=== PATIENT | male | born 1960 | race Caucasian/White ===

== ENCOUNTER 2025-07-11 05:51 | Emergency (ER) | payer OTHER ==
--- OUTSIDE RECORDS SUMMARY | 2025-07-11 05:55 | XMS REPORT | Continuity of Care Document ---
Author Name Unknown Address [address] [facility] [address] [place] [address] [facility] Address [address] 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 Role Phone Jem Ramires Attending Clinician Unavailable Mandy Dai Attending Clinician Unavailable DANNY GUARDADO Attending Clinician Unavailable DOMI GRANGER Attending Clinician Unavailab le LAB90 Attending Clinician Unavailable Payers Payer Name Policy Type Policy Number Effective Date Expirati on Date Source [facility] [id number] 7 [id number] 2025 00:00:00 [facility] FFS 5 [id number] 2025 00:00:00 [employer]-O[employer]IND 4 [id number] 2012 00:00:00 AETNA 53 [id number] 2023 00:00:00 [facility] Problems Condition Name Condition Details Condition Category Status Onset Date Resolution Date Last Treatment Date Treating Clinician Comments Source Epigastric pain Epigastric pain Disease Active 07-04 00:00: 00 Rajiv Seybold - Externa l Fatty liver Fatty liver Disease Active 07-04 00:00: 00 Rajiv Pires Externa l Seasonal allergic rhinitis due to pollen Seasonal allergic rhinitis due to pollen Disease Active 07-04 00:00: 00 Rajiv Pires Externa l 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) Disease Active 06-26 00:00: 00 Rajiv Pires Externa tamra Dyslipidem ia Dyslipidem ia Disease Active 2009-11 00:00: 00 Rajiv Pires Externa l DM type 2 with diabetic mixed hyperlipid emia (multi HCC) DM type 2 with diabetic mixed hyperlipid emia (multi HCC) Disease Active 2009-11 00:00: 00 Rajiv Pires Externa tamra Essential hypertensi on, benign Essential hypertensi on, benign Disease Active 2009-11 00:00: 00 Rajiv Fermina tamra [id number] Chronic gout without tophus, unspecifie d cause, unspecifie d site Problem [facility] [id number] Mixed hyperlipid emia Problem Common [facility] [id number] Essential hypertensi on Problem [facility] [id number] Type 2 diabetes mellitus with hyperglyce vernon, without long-term current use of insulin Problem [facility] [id number] Decreased hearing of both ears Problem [facility] [id number] Body mass index [BMI] 39.0-39.9, adult Problem [facility] Allergic rhinitis Non-season al allergic rhinitis, unspecifie d chronicity , unspecifie d trigger Problem [facility] Hypothyroi dism Hypothyroi dism Disease Active Rajiv Pires Externa tamra Gout Gout Disease Active Rajiv Pires Externa tamra Severe obesity Severe obesity Disease Active Rajiv Mcdermott - Externa l IDALIA on CPAP IDALIA on CPAP Disease Active Rajiv Mcdermott - Externa l Chest pain Chest pain Disease Resolve d 2009-11 00:00: 00 2025-07-04 00:00:00 2025-07-04 15:18:10 Rajiv Mcdermott - Externa l Allergies, Adverse Reactions, Alerts Allergy Name Allergy Type Status Severity Reaction(s) Onset Date Inactive Date Treating Clinician Comments Source Penicill in Conner Russ ty to adverse reaction s Active 2009-11 00:00: 00 Rajiv Fermina l [id number] Drug allergy Active Unknown [facility] Social History Social Habit Start Date Stop Date Quantity Comments Source Sex Assigned At [facility] Gender identity Ivy Mcdermott - External Sexual orientation Aleida Mcdermott - External Alcoholic beverage intake 2025-07-04 00:00:00 2025-07-04 00:00:00 Current drinker of alcohol (finding) Rajiv Mcdermott - External History of Social function 2025-07-04 00:00:00 2025-07-04 00:00:00 Rajiv Mcdermott - External Tobacco use and exposure 2025-06-26 00:00:00 2025-06-26 00:00:00 Former smokeless tobacco user Rajiv Mcdermott - External Tobacco Comment 2025-06-26 00:00:00 2025-06-26 00:00:00 ocass. cigar Rajiv Mcdermott - External Sex 2012-12-13 19:44:50 2012-12-13 19:44:50 Male (finding) Rajiv Mcdermott - External Alcohol Comment 2010-10-27 00:00:00 2010-10-27 00:00:00 1 drink of wine or beer daily Rajiv Mcdermott - External History of tobacco use 2009-03-12 00:00:00 Cigar Smoker Rajiv Mcdermott - External Smoking Status Start Date Stop Date Source Ex-smoker 2025-06-26 00:00:00 2025-06-26 00:00:00 Aleida Mcdermott - External Current Smoker 2025-04-09 00:00:00 [facility] Never Smoker [facility] Medications Ordered Medication Name Filled Medication Name Start Date Stop Date Current Medication? Ordering Clinician Indication Dosage Frequency Signature (SIG) Comments Components Source Tirzepatide (Mounjaro) 12.5 MG/0.5ML subcutaneou s Solution Auto-inject or Tirzepatide (Mounjaro) 12.5 MG/0.5ML subcutaneou s Solution Auto-inject or 07-04 00:00: 00 Yes [id number] 3 12.5mg Q1W Inject 12.5 mg into the skin once a week. Rajiv barboza Levothyroxi ne Sodium 75 MCG oral Tablet Levothyroxi ne Sodium 75 MCG oral Tablet 06-26 15:32: 46 Yes 75ug QD Take 1 tablet (75 mcg total) by mouth daily. Rajiv barboza Atorvastati n Calcium 10 MG oral Tablet Atorvastati n Calcium 10 MG oral Tablet 06-26 15:32: 46 Yes 10mg QD Take 1 tablet (10 mg total) by mouth daily. Rajiv barboza Montelukast (SINGULAIR) 10 MG oral Tablet tablet Montelukast (SINGULAIR) 10 MG oral Tablet tablet 06-26 15:32: 46 Yes 10mg QD Take 1 tablet (10 mg total) by mouth daily. Rajiv barboza Allopurinol 300 MG oral Tablet Allopurinol 300 MG oral Tablet 06-26 15:32: 46 Yes 300mg QD Take 1 tablet (300 mg total) by mouth daily. Rajiv barboza Tirzepatide (Mounjaro) 15 MG/0.5ML subcutaneou s Solution Auto-inject or Tirzepatide (Mounjaro) 15 MG/0.5ML subcutaneou s Solution Auto-inject or 06-26 15:32: 46 07-04 00:00 :00 No inject 15mg Subcutaneo us Once a week for 30 days Rajiv barboza Omeprazole 20 MG oral Delayed Release Capsule Omeprazole 20 MG oral Delayed Release Capsule 06-26 00:00: 00 07-04 00:00 :00 No [id number] 20mg QD Take 1 capsule (20 mg total) by mouth daily Take 30 minutes before breakfast. Rajiv barboza Amlodipine Besy-Benaze pril HCl (LOTREL) 10-20 MG OR CAPS Amlodipine Besy-Benaze pril HCl (LOTREL) 10-20 MG OR CAPS 1-03 00:00: 00 Yes [id number] 1{capsu le} QD Take 1 capsule by mouth daily Rajiv barboza PEG-KCl-NaC l-NaSulf-Na Asc-C (MOVIPREP) 100 GM OR SOLR PEG-KCl-NaC l-NaSulf-Na Asc-C (MOVIPREP) 100 GM OR SOLR 9- 00:00: 00 Yes [id number] USE DIRECTED Rajiv barboza Montelukast Sodium 10 MG Montelukast Sodium 10 MG No 1{table t} QD Montelukas t Sodium 10 MG Atorvastati n Calcium 10 MG Atorvastati n Calcium 10 MG No 1{table t} QD Atorvastat in Calcium 10 MG Allopurinol 300 MG Allopurinol 300 MG No 1{table t} QD Allopurino l 300 MG Immunizations Ordered Immunization Name Filled Immunization Name Date Status Comments Source Boostrix (Tdap) Boostrix (Tdap) Unknown Completed [facility] Boostrix (Tdap) Boostrix (Tdap) Unknown Completed [facility] Boostrix (Tdap) Boostrix (Tdap) Unknown Completed [facility] Boostrix (Tdap) Boostrix (Tdap) Unknown Completed [facility] Boostrix (Tdap) Boostrix (Tdap) Unknown Completed [facility] Boostrix (Tdap) Boostrix (Tdap) Unknown Completed [facility] Boostrix (Tdap) Boostrix (Tdap) Unknown Completed [facility] Boostrix (Tdap) Boostrix (Tdap) Unknown Completed [facility] Boostrix (Tdap) Boostrix (Tdap) Unknown Completed [facility] Boostrix (Tdap) Boostrix (Tdap) Unknown Completed [facility] Vital Signs Vital Name Observation Time Observation Value Comments S ourstef Systolic blood pressure 2025-07-04 14:51:00 110 mm[Hg] Rajiv Melendrez ld - External Diastolic blood pressure 2025-07-04 14:51:00 78 mm[Hg] Rajiv Crooko ld - External Heart rate 2025-07-04 14:51:00 83 /min Manuela Crookold - External Body temperature 2025-07-04 14:51:00 36.83 Laura Rajiv Mcallisterybold - External Respiratory rate 2025-07-04 14:51:00 18 /min Rajiv Mcallisterybold - External Body height 2025-07-04 14:51:00 177.8 cm Ivy lou Seybold - External Body weight 2025-07-04 14:51:00 116.937 kg Ivy ey Seybold - External BMI 2025-07-04 14:51:00 36.99 kg/m2 Ivy lou Seybold - External Oxygen saturation in Arterial blood by Pulse oximetry 2025-07-04 14:51:00 98 /min Rajiv Crooko ld - External Systolic blood pressure 2025-06-26 15:30:00 111 mm[Hg] Rajiv Crooko ld - External Diastolic blood pressure 2025-06-26 15:30:00 75 mm[Hg] Rajiv Crooko ld - External Heart rate 2025-06-26 15:30:00 102 /min Manuela Mcdermott - External Body temperature 2025-06-26 15:30:00 36.72 Laura Rajiv Mcdermott - External Respiratory rate 2025-06-26 15:30:00 20 /min Rajiv Mcallisterybold - External Body height 2025-06-26 15:30:00 177.8 cm Ivy lou Seybold - External Body weight 2025-06-26 15:30:00 113.399 kg Ivy lou Seybold - External BMI 2025-06-26 15:30:00 35.87 kg/m2 Ivy ey Seybold - External height 2025-04-09 09:50:00 69.0 [in_i] Comm on [facility] weight 2025-04-09 09:50:00 261.8 [lb_av] Co mmon [facility] temperature 2025-04-09 09:50:00 97.3 [degF] Com mon [facility] bmi 2025-04-09 09:50:00 38.66 kg/m2 Comm on [facility] oximetry 2025-04-09 09:50:00 99 % Commo n [facility] respiratory rate 2025-04-09 09:50:00 18 /min [facility] blood pressure systolic 2025-04-09 09:50:00 129 mm[Hg] [facility] blood pressure diastolic 2025-04-09 09:50:00 82 mm[Hg] [facility] height 2024-11-14 10:00:00 69.0 [in_i] Comm on [facility] weight 2024-11-14 10:00:00 259 [lb_av] Comm on [facility] temperature 2024-11-14 10:00:00 97.6 [degF] Com [facility] bmi 2024-11-14 10:00:00 38.24 kg/m2 Comm on [facility] oximetry 2024-11-14 10:00:00 99 % Commo n [facility] respiratory rate 2024-11-14 10:00:00 18 /min [facility] blood pressure systolic 2024-11-14 10:00:00 130 mm[Hg] [facility] blood pressure diastolic 2024-11-14 10:00:00 86 mm[Hg] [facility] height 2024-08-09 09:20:00 69.0 [in_i] Comm on [facility] weight 2024-08-09 09:20:00 261.2 [lb_av] Co mmon [facility] temperature 2024-08-09 09:20:00 97.7 [degF] Com [facility] bmi 2024-08-09 09:20:00 38.57 kg/m2 Comm on [facility] oximetry 2024-08-09 09:20:00 98 % Commo n [facility] blood pressure systolic 2024-08-09 09:20:00 132 mm[Hg] [facility] blood pressure diastolic 2024-08-09 09:20:00 80 mm[Hg] Common [facility] height 2024-07-25 11:40:00 69.0 [in_i] Comm on [facility] weight 2024-07-25 11:40:00 255 [lb_av] Comm on [facility] temperature 2024-07-25 11:40:00 99.0 [degF] Com mon [facility] bmi 2024-07-25 11:40:00 37.65 kg/m2 Comm on [facility] height 2024-05-09 10:00:00 69.0 [in_i] Comm on [facility] weight 2024-05-09 10:00:00 255.8 [lb_av] Co mmon [facility] temperature 2024-05-09 10:00:00 98 [degF] Comm on [facility] bmi 2024-05-09 10:00:00 37.77 kg/m2 Comm on [facility] oximetry 2024-05-09 10:00:00 99 % Commo n [facility] blood pressure systolic 2024-05-09 10:00:00 132 mm[Hg] Common [facility] blood pressure diastolic 2024-05-09 10:00:00 82 mm[Hg] [facility] height 2024-05-09 10:00:00 69.0 [in_i] Comm on [facility] weight 2024-05-09 10:00:00 255.8 [lb_av] Co mmon [facility] temperature 2024-05-09 10:00:00 98 [degF] Comm on [facility] bmi 2024-05-09 10:00:00 37.77 kg/m2 Comm on [facility] oximetry 2024-05-09 10:00:00 99 % Commo n [facility] blood pressure systolic 2024-05-09 10:00:00 132 mm[Hg] [facility] blood pressure diastolic 2024-05-09 10:00:00 82 mm[Hg] [facility] height 2024-01-03 09:00:00 69.0 [in_i] Comm on [facility] weight 2024-01-03 09:00:00 266.8 [lb_av] Co mmon [facility] temperature 2024-01-03 09:00:00 98.1 [degF] Com [facility] bmi 2024-01-03 09:00:00 39.4 kg/m2 Commo n [facility] oximetry 2024-01-03 09:00:00 99 % Commo n [facility] blood pressure systolic 2024-01-03 09:00:00 126 mm[Hg] [facility] blood pressure diastolic 2024-01-03 09:00:00 80 mm[Hg] Common [facility] height 2023-12-16 16:00:00 69.0 [in_i] Comm on [facility] weight 2023-12-16 16:00:00 265.8 [lb_av] Co mmon [facility] temperature 2023-12-16 16:00:00 98.3 [degF] Com [facility] bmi 2023-12-16 16:00:00 39.25 kg/m2 Comm on [facility] oximetry 2023-12-16 16:00:00 98 % Commo n [facility] respiratory rate 2023-12-16 16:00:00 18 /min Common [facility] blood pressure systolic 2023-12-16 16:00:00 123 mm[Hg] [facility] blood pressure diastolic 2023-12-16 16:00:00 86 mm[Hg] [facility] height 2023-11-16 13:20:00 69.0 [in_i] Comm on [facility] weight 2023-11-16 13:20:00 265.0 [lb_av] Co [facility] bmi 2023-11-16 13:20:00 39.13 kg/m2 Comm on [facility] height 2023-09-28 14:00:00 69.0 [in_i] Comm on [facility] weight 2023-09-28 14:00:00 265.0 [lb_av] Co [facility] temperature 2023-09-28 14:00:00 98.1 [degF] Com mon [facility] bmi 2023-09-28 14:00:00 39.13 kg/m2 Comm on [facility] oximetry 2023-09-28 14:00:00 98 % Commo n [facility] respiratory rate 2023-09-28 14:00:00 18 /min [facility] blood pressure systolic 2023-09-28 14:00:00 119 mm[Hg] [facility] blood pressure diastolic 2023-09-28 14:00:00 77 mm[Hg] [facility] Procedures Procedure Date / Time Performed Performing Clinicia n Source COMP. METABOLIC PANEL () 2025-07-11 00:00:00 Rajiv Mcdermott - External HEMOGLOBIN (HB) A1C WITH EAG 2025-07-11 00:00:00 Rajiv Mcdermott - External TSH+FREE T4 2025-07-11 00:00:00 Rajiv lay - External LIPASE 2025-06-26 00:00:00 Rajiv lay - External COMP. METABOLIC PANEL (14) 2025-06-26 00:00:00 Rajiv Mcdermott - External US ABDOMEN COMPLETE 2025-06-26 00:00:00 Aleida Mcdermott - External Plan of Care Planned Activity Planned Date Details Comments Source Encounters Start Date/Time End Date/Time Encounter Type Admission Type Attending Clinicians Care Facility Care Department Encounter ID Source 2024-11-13 13:56:01 [facility] [id number] [facility] 2024-08-07 09:42:01 [facility] [id number] [facility] 2024-07-25 10:37:00 [facility] [id number] [facility] 2024-05-07 11:02:01 [facility] [id number] [facility] 2024-01-03 08:59:02 [facility] [id number] [facility] 2023-09-28 13:54:00 Outpatient [facility]andy [facility] [id number] [facility] 2025-08-01 10:15:00 2025-08-01 10:15:00 Outpatient DANNY GUARDADO [id number] Rajiv [facility] 2025-07-04 15:00:00 2025-07-04 15:00:00 Outpatient DANNY GUARDADO [id number] [facility] 2025-07-03 11:15:00 2025-07-03 11:15:00 Outpatient DANNY GUARDADO [id number] Rajiv [facility] 2025-07-02 00:00:00 2025-07-02 00:00:00 Outpatient DOMI GRANGER [id number] Rajiv [facility] 2025-06-27 12:30:00 2025-06-27 12:30:00 Outpatient RAJIV GURROLA [id number] Rajiv [facility] 2025-06-26 16:20:00 2025-06-26 16:20:00 Outpatient LAB90 RAJIV GURROLA [id number] Rajiv [facility] 2025-06-26 16:00:00 2025-06-26 16:00:00 Outpatient DOMI GRANGER RAJIV [id number] Rajiv [facility] 2025-06-26 10:30:00 2025-06-26 10:30:00 Outpatient DOMI GRANGER [id number] [facility] 2025-06-04 00:00:00 2025-06-04 00:00:00 (TEL) STLMLC STLMLC [id number] [facility] 2025-04-09 00:00:00 2025-04-09 00:00:00 OFFICE VISIT ESTAB PT LEVEL 4 STLMLC STLMLC [id number] [facility] 2025-01-10 00:00:00 2025-01-10 00:00:00 (WEB) STLMLC STLMLC [id number] [facility] 2024-11-25 00:00:00 2024-11-25 00:00:00 (WEB) STLMLC STLMLC [id number] [facility] 2024-11-18 00:00:00 2024-11-18 00:00:00 (WEB) STLMLC STLMLC [id number] [facility] 2024-11-14 00:00:00 2024-11-14 00:00:00 OFFICE VISIT ESTAB PT LEVEL 4 STLMLC STLMLC [id number] [facility] 2024-11-07 00:00:00 2024-11-07 00:00:00 (TEL) STLMLC STLMLC [id number] [facility] 2024-11-05 00:00:00 2024-11-05 00:00:00 (TEL) STLMLC STLMLC [id number] [facility] 2024-10-18 00:00:00 2024-10-18 00:00:00 (WEB) STLMLC STLMLC [id number] [facility] 2024-09-14 00:00:00 2024-09-14 00:00:00 (WEB) STLMLC STLMLC [id number] [facility] 2024-08-09 00:00:00 2024-08-09 00:00:00 OFFICE VISIT ESTAB PT LEVEL 4 STLMLC STLMLC [id number] [facility] 2024-08-01 00:00:00 2024-08-01 00:00:00 (WEB) STLMLC STLMLC [id number] [facility] 2024-07-25 00:00:00 2024-07-25 00:00:00 OFFICE VISIT ESTAB PT LEVEL 3 STLMLC STLMLC [id number] [facility] 2024-07-25 00:00:00 2024-07-25 00:00:00 (TEL) STLMLC STLMLC [id number] [facility] 2024-07-05 00:00:00 2024-07-05 00:00:00 (WEB) STLMLC STLMLC [id number] [facility] 2024-07-05 00:00:00 2024-07-05 00:00:00 (WEB) STLMLC STLMLC [id number] [facility] 2024-07-05 00:00:00 2024-07-05 00:00:00 (WEB) STLMLC STLMLC [id number] [facility] 2024-06-07 00:00:00 2024-06-07 00:00:00 (WEB) STLMLC STLMLC [id number] [facility] 2024-05-09 00:00:00 2024-05-09 00:00:00 (WELLNESS) Wellness Visit STLMLC STLMLC [id number] [facility] 2024-04-10 00:00:00 2024-04-10 00:00:00 (TEL) STLMLC STLMLC [id number] [facility] 2024-02-06 00:00:00 2024-02-06 00:00:00 (TEL) STLMLC STLMLC [id number] [facility] 2024-01-03 00:00:00 2024-01-03 00:00:00 OFFICE VISIT ESTAB PT LEVEL 4 STLMLC STLMLC [id number] [facility] 2023-12-16 00:00:00 2023-12-16 00:00:00 (ESTPT) Establishe d Patient STLMLC STLMLC [id number] [facility] 2023-12-16 00:00:00 2023-12-16 00:00:00 (TEL) STLMLC STLMLC [id number] [facility] 2023-12-01 00:00:00 2023-12-01 00:00:00 (TEL) STLMLC STLMLC [id number] [facility] 2023-11-23 00:00:00 2023-11-23 00:00:00 (TEL) STLMLC STLMLC [id number] [facility] 2023-11-16 00:00:00 2023-11-16 00:00:00 (TEL) STLMLC STLMLC [id number] [facility] 2023-11-16 00:00:00 2023-11-16 00:00:00 OFFICE VISIT ESTAB PT LEVEL 3 STLMLC STLMLC [id number] [facility] 2023-09-28 00:00:00 2023-09-28 00:00:00 OFFICE VISIT NEW PT LEVEL 3 STLMLC STLMLC [id number] [facility] Results Test Description Test Time Test Comments Results Result Co mments Source Notes Date/Time Note Provider Source Referral ID Status Reason Start Date Expiration Date Visits Requested Visits Authorized [id number] Authorized Specialty Services Required 07/04/2025 10/02/2025 [id number]:35[facility]20[facility] 15:35:20 [id number] 15:35:20* Patient Instructions* Danny Guardado DO - 07/04/2025 3:34 PM CDT Diabetes Mellitus: - Severe abdominal pain last week on Mounjaro 15 mg weekly. CMP and lipase unremarkable recently. - A1c 6.1 in March, fasting blood sugar 110-120 - Comprehensive metabolic panel and lipase normal - Reduced Mounjaro to 12.5 mg weekly, advised injection into fatty tissue around belly or arm, avoiding muscle - A1c prior to next visit - Consider CT scan if pain persists Hypothyroidism: - Taking levothyroxine 70 mcg daily - Check thyroid levels before next visit Hypertension: - On amlodipine/benazepril 10/20 mg daily since age 37 Gout: - Taking allopurinol 300 mg daily, no gout attacks since starting Hyperlipidemia: - Taking atorvastatin 10 mg daily - Lipid profile from March: total cholesterol 150, HDL 46, triglycerides 105, LDL 84. Obtain lab prior to next visit Allergies: - Taking Singulair 10 mg daily for chronic allergies Sleep Apnea: - Uses CPAP, reports resolution of indigestion Fatty Liver: - Ultrasound showed fatty liver, no gallstones, liver function tests normal - Increase fluid intake - Consider GI referral if liver function tests change, possible biopsy or FibroScan Health Maintenance: - Colonoscopy at age 60, repeat in 10 years - Referral to media relations specialist for exam, not had one in over a year [facility]2025-08-07 15:35:20* Danny Guardado DO - 07/04/2025 3:00 PM CDT Patient and patient’s participants in attendance, if any, consented to the use of [employer] ([employer] a new technology product that uses artificial intelligence to assist the provider to document the patient encounter and to record this visit. Chief Complaint Establish Care History of Present Illness Abdullahi Fernandez is a(n) 65 year old male with a past medical history asdocumented below who presents today for evaluation of [facility] Care . History of Present IllnessThe patient is a 65-year-old male presenting to [facility] care and address medical concerns. Diabetes Management- Managing diabetes with Mounjaro 15 mg weekly for 10-11 months, taken every Tuesday morning - Experiences abdominal pain Tuesday nights, subsiding by morning, but last week the pain persisted until Tuesday, suspecting a gallbladder issue - Pain described as a hot rock in the stomach, without heartburn, reflux, nausea, vomiting, or bowel changes - Uses laxatives/stool softeners regularly due to Mounjaro, no diarrhea - First time experiencing these symptoms with Mounjaro - Did not take dose last Tuesday - A1c is 6.1, fasting blood sugar 110-120 - Changed injection site to a higher location for better efficacy, injected twice at new site - Diagnosed with diabetes 7-8 years ago, family history of diabetes - Started Mounjaro at 300 pounds, no weight loss since Hypothyroidism- Taking levothyroxine 70 mcg, prescribed by Dr. Wang, continued by Dr. Ramires - Uncertain of diagnosis Hypertension- Diagnosed with hypertension since age 37, taking amlodipine/benazepril 10/20 mg daily Gout- History of gout, taking allopurinol 300 mg daily - No gout attacks since starting Hyperlipidemia- Taking atorvastatin 10 mg daily Chronic Allergies- Taking Singulair 10 mg daily Sleep Apnea- Stopped Prilosec after starting CPAP therapy for sleep apnea, resolving indigestion Fatty Liver- Ultrasound showed fatty liver - Drinks heavily Up to date with colonoscopy, last one 5 years ago at age 60, advised to repeatin 10 years No eye exam this year, likely none since custodial, used to get one annually Social History:- Occupation: Retired, previously worked shift work for 37 years - Alcohol: Heavy consumption - Sleep: Uses CPAP, reports improved sleep FAMILY HISTORYHis dad and grandma had diabetes. Lab 06/26/2025: Creatinine 1.03, GFR 81. Liver function test unremarkable. Electrolytes unremarkable. Lipase 45. US ABDOMEN PEQEIOIG91/31/2025 1:11 PM Order #: [id number] Performing Department: [facility] DIAGNOSIS: Abdominal pain, unspecified abdominal location [R10.9 (ICD-10-CM)] Gastroesophageal reflux disease, unspecified whether esophagitis present [K21.9 (ICD-10-CM)] Result Narrative: EXAM: Abdominal ultrasound, complete COMPARISON: None HISTORY: abdominal pain FINDINGS: LIVER: 18.2 cm. The liver demonstrates mildly increased echogenicity. There isno focal mass or intrahepatic biliary ductal dilatation. Ultrasound is not a sensitive modality for detection of small solid lesions. Main portal vein is patent and hepatopetal. COMMON BILE DUCT: 0.3 cm GALLBLADDER: There is no evidence of cholelithiasis, pericholecystic fluid or gallbladder wall thickening. Sonographic Ivey's sign is negative. PANCREAS: The visualized portion appears unremarkable. RIGHT KIDNEY: 10.2 cm x 5.6 cm x 5.1 cm. Normal echogenicity. No hydronephrosis or nephrolithiasis. LEFT KIDNEY: 10.9 cm x 5.4 cm x 6.1 cm. Normal echogenicity. No hydronephrosisor nephrolithiasis. SPLEEN: 11.8 cm. Homogeneous. VASCULATURE:AORTA: The visible portion of the aorta is normal. INFERIOR VENA CAVA: The visible portion of the inferior vena cava is normal. MISCELLANEOUS:Ascites: None Other: None IMPRESSION: 1. Diffusely increased hepatic echogenicity may relate to mild hepaticsteatosis versus nonspecific hepatocellular disease. Dictated by: Holland Amin MD 06/27/2025 Current Medications Current Medications[1] Past Medical History Past Medical History[2] Past Surgical History Past Surgical History:Procedure Laterality Date COLONOSCOPY FLX DX W/COLLJ SPEC WHEN PFRMD 09/16/2011 diverticulosis Family Medical History Family History[3] Social History Social History[4] Review of Systems Review of Systems Physical Exam BP 110/78 (Side: Left Arm, Position: SITTING, Cuff Size: Large Adult) | Pulse83 | Temp 98.3 ?F (36.8 ?C) (Tympanic) | Resp 18 | Ht 5' 10" (1.778 m) | Wt 257 lb 12.8 oz (116.9 kg) | SpO2 98% | BMI 36.99 kg/m? General: Alert, Conversant, cooperative, oriented x3.HEENT: Head atraumatic. Extraocular movements intact. Ears atraumatic. Nares patent. Oropharynx moist. Dentition appears normal. Neck: Supple. No thyromegaly. Heart: Regular rate and rhythm. No murmurs. Lungs: Clear to auscultation bilateral. Abdomen: Soft, nontender, nondistended. Extremities: Good range of motion to all extremities. No focal deficits. Skin: Normal skin turgor. Skin appears dry. No significant edema. Neuro: No focal deficits. Mental: Patient appears in good mood. Intact judgement and insight. Patient interactive and appropriate. Assessment and Plan 1. Acquired hypothyroidism- TSH+FREE T4; Future 2. Idiopathic gout, unspecified chronicity, unspecified site 3. 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)- Tirzepatide (Mounjaro) 12.5 MG/0.5ML subcutaneous Solution Auto-injector; Inject 12.5 mg into the skin once a week. Dispense: 6 mL; Refill: 1 - COMP. METABOLIC PANEL (14); Future - HEMOGLOBIN (HB) A1C WITH EAG; Future - REFERRAL TO [facility]OMETRY- [facility] [place] 4. Severe obesity (CMS-HCC) 5. Epigastric pain- COMP. METABOLIC PANEL (14); Future 6. Essential hypertension, benign- COMP. METABOLIC PANEL (14); Future 7. IDALIA on CPAP- COMP. METABOLIC PANEL (14); Future 8. Fatty liver 9. Seasonal allergic rhinitis due to pollen Assessment & Plan Diabetes Mellitus: - Severe abdominal pain last week on Mounjaro 15 mg weekly. CMP and lipase unremarkable recently. - A1c 6.1 in March, fasting blood sugar 110-120 - Comprehensive metabolic panel and lipase normal - Reduced Mounjaro to 12.5 mg weekly, advised injection into fatty tissue around belly or arm, avoiding muscle - A1c prior to next visit - Consider CT scan if pain persists Hypothyroidism:- Taking levothyroxine 70 mcg daily - Check thyroid levels before next visit Hypertension:- On amlodipine/benazepril 10/20 mg daily since age 37 Gout:- Taking allopurinol 300 mg daily, no gout attacks since starting Hyperlipidemia:- Taking atorvastatin 10 mg daily - Lipid profile from March: total cholesterol 150, HDL 46, triglycerides 105, LDL 84. Obtain lab prior to next visit Allergies:- Taking Singulair 10 mg daily for chronic allergies Sleep Apnea:- Uses CPAP, reports resolution of indigestion Fatty Liver:- Ultrasound showed fatty liver, no gallstones, liver function tests normal - Increase fluid intake - Consider GI referral if liver function tests change, possible biopsy or FibroScan Health Maintenance:- Colonoscopy at age 60, repeat in 10 years - Referral to media relations specialist for exam, not had one in over a year Follow-up:- 4 to 6 weeks Questions answered. Instructions/handouts given. Risks and benefits of any prescription medicines, including any side effects, addressed in detail with the patient. Patient understands and agrees with plan of care. Follow-Up Return in about 4 weeks (around 08/01/2025). DANNY GUARDADO DO [1]Current Outpatient Medications Medication Sig Dispense Refill Allopurinol 300 MG oral Tablet Take 1 tablet (300 mg total) by mouth daily. Amlodipine Besy-Benazepril HCl (LOTREL) 10-20 MG OR CAPS Take 1 capsule by mouth daily 30 each 2 Atorvastatin Calcium 10 MG oral Tablet Take 1 tablet (10 mg total) by mouth daily. Levothyroxine Sodium 75 MCG oral Tablet Take 1 tablet (75 mcg total) by mouth daily. Montelukast (SINGULAIR) 10 MG oral Tablet tablet Take 1 tablet (10 mg total) by mouth daily. Tirzepatide (Mounjaro) 12.5 MG/0.5ML subcutaneous Solution Auto-injector Inject 12.5 mg into the skin once a week. 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 cigar Substance and Sexual Activity Alcohol use: Yes Comment: 1 drink of wine or beer daily Drug use: No [id number] 15:35:20Upcoming Encounters Scheduled Orders Name Type Priority Associated Diagnoses Orde r Schedule COMP. 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) Epigastric pain Essential hypertension, benign IDALIA on CPAP Expected: 07/11/2025, Expires: 01/04/2026 HEMOGLOBIN (HB) A1C WITH EAG Lab Routine DM type 2 with diabe tic mixed hyperlipidemia (multi HCC) Expected: 07/11/2025, Expires: 01/04/2026 TSH+FREE T4 Lab Routine Acquired hypothyroidism Expected: 07/11/2025, Expires: 01/04/2026 Scheduled Referrals Name Type Priority Associated Diagnoses Orde r Schedule REFERRAL TO OPTOMETRY- .[facility] Referral Routine DM type 2 with diabe tic mixed hyperlipidemia (multi HCC) Ordered: 07/04/2025 Health Maintenance Due Date Last Done Comments CT Colonography 1960 Cologuard 1960 FIT Tests 1960 Sigmoidoscopy 1960 Diabetes: Hemoglobin A1C 1978 Diabetes: Retinopathy Screening 1978 Pneumococcal Vaccine: 50+ Ye ars (1 of 2 - PCV) 1979 Tdap Vaccines 1979 Physical Exam 2000 Zoster Vaccines (1 of 2) 2010 RSV Vaccines (1 - Risk 60-74 years 1-dose series) 2020 COVID-19 Vaccine (1 - season) 2024 Influenza Vaccines (#1) 2025 Diabetes: Urine Protein Screening 04/01/2026 025 Lipid Panel 04/01/2026 04/01/2025, 08/28/2010 Creatinine Level (Kidney Function Test) 06/26/2026 0 06/26/2025, 08/28/2010 COLONOSCOPY 07/07/2030 07/07/2020, 09/16/2011 Colorectal Cancer Screening 07/07/2030 AAA SCREEN Completed 06/27/2025 [facility]2025-08-07 15:35:20 Diagnosis Epigastric pain - Primary Abdominal pain, epigastric Acquired hypothyroidism Unspecified hypothyroidism Idiopathic gout, unspecified chronicity, unspecified site 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) Type II or unspecified type diabetes mellitus with other specified manifestations, not stated as uncontrolled Severe obesity ([facility]) Morbid obesity Essential hypertension, nathan gn IDALIA on CPAP Obstructive sleep apnea (adult) (pediatric) Fatty liver Other chronic nonalcoholic liver disease Seasonal allergic rhinitis d ue to pollen Class 2 severe obesity due t o excess calories with serious comorbidity and body mass index (BMI) of 36.0 to 36.9 in adult ([facility]) [facility]2025-08-07 15:35:20 [place] [id number] 14:54:12 Chief Complaint Patient presents with [facility] Maya De Souza MA [facility]2025-07-30 16:41:58* [facility]2025-07-30 16:41:58* Domi Granger FNP-C - 06/26/2025 4:00 PM CDT Chief Complaint New Patient History of Present Illness Abdullahi Fernandez is a(n) 65 year old male with a past medical history asdocumented below who presents today for evaluation of New Patient New Patient. Seen at [facility] in the past.Prior PCP: Dr. Jem Ramires Last physical March 2025 Type 2 diabetes: Takes Mounjaro 15 mg every TuesdayLabwork 04/01/25 on pt phone : A1c 6.1% Fasting sugars average 110Postprandial Bgs average 130 - 140 C/o belching after eating, poor appetite, abdominal pain, burning sensation, intermittent constipation for past 3 days. No fever or nausea. Two nights ago had severe pain and some vomiting. Has taken OTC miralax and Tums with some relief. Pt has been on full dose of Mounjaro 15 mg for past 10 months. Pt stated his symptoms felt like how he initially feels when taking the mounjaro. Denies any fever or chills. Colonoscopy 5 yrs ago showed no polpys. Current Medications Current Medications[1] Past Medical History Past Medical History[2] Past Surgical History Past Surgical History:Procedure Laterality Date COLONOSCOPY FLX DX W/COLLJ SPEC WHEN PFRMD 09/16/2011 diverticulosis Family Medical History Family History[3] Social History Social History[4] Review of Systems Review of SystemsGastrointestinal: Positive for abdominal pain (mid lower abdomen). Negative for constipation, diarrhea, nausea and vomiting. Burning sensation Physical Exam BP 111/75 (Side: Left Arm, Position: SITTING, Cuff Size: Medium Adult) | Pulse 102 | Temp 98.1 ?F (36.7 ?C) (Tympanic) | Resp 20 | Ht 5' 10" (1.778 m) | Wt 250 lb (113.4 kg) | BMI 35.87 kg/m? General: Alert, Conversant, cooperative, oriented x3.Heart: Regular rate and rhythm. No murmurs. Lungs: Clear to auscultation bilateral. Abdomen: Soft, nondistended. Tenderness to palpation of hypogastric region. Labs/Radiology Prior lab reviewed Assessment and Plan 1. Type 2 diabetes mellitus with obesity (multi HCC) 2. Abdominal pain, unspecified abdominal location- LIPASE; Future - COMP. METABOLIC PANEL (14); Future - US ABDOMEN COMPLETE; Future 3. Gastroesophageal reflux disease, unspecified whether esophagitis present- US ABDOMEN COMPLETE; Future - Omeprazole 20 MG oral Delayed Release Capsule; Take 1 capsule (20 mg total) by mouth daily Take 30 minutes before breakfast. Dispense: 30 capsule; Refill: 1 Type 2 DM/ obesity: If no improvement with GI symptoms, may consider cuttingback on mounjaro dose. For now, continue mounjaro 15 mg weekly. Recommend to decrease carbohydrate intake to less than 45 g per meal. Recommend to check blood sugars at least twice daily. Recommend to maintain blood sugars less than 140 fasting and less than 200 after meals. If blood sugar remains above 200 further adjustment in medication may be required. Abdominal pain/ GERD: Obtain nonfasting labs today including CMP and lipase.Will obtain ultrasound of abdomen r/o cholecystitis. Patient provided with rajiv scheduling number for radiology. May likely be due to to side effects of Mounjaro. Recommend starting omeprazole 20 mg daily. If no improvement, consider reducing Mounjaro dosage. ER precautions: If experiencing any worsening severe persistent abdominal pain, fever, chills, nausea, vomiting, chest pain, shortness of breath, dizziness, headache please go to the emergency room immediately. Questions answered. Risks and benefits of any prescription medicines, including any side effects, addressed in detail with the patient. Patient understands and agrees with plan of care. Follow-Up Return for follow up next week. Domi Granger, MICHELLE-CSP: Danny Prezas, DO [facility] [1]Current Outpatient Medications Medication Sig Dispense Refill Omeprazole 20 MG oral Delayed Release Capsule Take 1 capsule (20 mg total) by mouth daily Take 30 minutes before breakfast. 30 capsule 1 Allopurinol 300 MG oral Tablet Take 1 tablet (300 mg total) by mouth daily. Amlodipine Besy-Benazepril HCl (LOTREL) 10-20 MG OR CAPS Take 1 capsule by mouth daily 30 each 2 Atorvastatin Calcium 10 MG oral Tablet Take 1 tablet (10 mg total) by mouth daily. Levothyroxine Sodium 75 MCG oral Tablet Take 1 tablet (75 mcg total) by mouth daily. Montelukast (SINGULAIR) 10 MG oral Tablet tablet Take 1 tablet (10 mg total) by mouth daily. SGQ-NLj-SdVe-NaSulf-Na Asc-C (MOVIPREP) 100 GM OR SOLR USE DIRECTED 1 each 0 Tirzepatide (Mounjaro) 15 MG/0.5ML subcutaneous Solution Auto-injector inject 15mg Subcutaneous Once a week for 30 days No current facility-administered medications for this visit.[2] Past Medical History: Diagnosis Date Essential hypertension, benign Gout Hypercholesterolemia Hypothyroidism Obesity Type 2 diabetes mellitus (multi HCC) [3] Family History Problem Relation Name Age of Onset Hypertension Mother Diabetes Mellitus Father Cancer Maternal Grandfather [4] Social History Socioeconomic History Marital status: Tobacco Use Smoking status: Former Current packs/day: 0.00 Types: Cigarettes, Cigars Quit date: 03/12/2009 Years since quittin.3 Smokeless tobacco: Former Tobacco comments: ocass. cigar Substance and Sexual Activity Alcohol use: Yes Comment: 1 drink of wine or beer daily Drug use: No [facility]2025-07-30 16:41:58Upcoming Encounters Pending Results Name Type Priority Associated Diagnoses Date /Time LIPASE Lab Routine Abdominal pain, unspecified abdominal location 06/26/2025 4:28 PM CDT COMP. METABOLIC PANEL (14) Lab Routine Abdominal pain, unspecified abdominal location 06/26/2025 4:28 PM CDT Scheduled Orders Name Type Priority Associated Diagnoses Orde r Schedule LIPASE Lab Routine Abdominal pain, unspecified abdominal location Expected: 06/26/2025 (Approximate), Expires: 09/24/2025 COMP. METABOLIC PANEL (14) Lab Routine Abdominal pain, unspecified abdominal location Expected: 06/26/2025, Expires: 08/25/2025 US ABDOMEN COMPLETE Imaging Routine Abdominal pain, unspecified abdominal location Gastroesophageal reflux disease, unspecified whether esophagitis present Expected: 06/26/2025, Expires: 06/26/2026 Health Maintenance Due Date Last Done Comments CT Colonography 1960 Cologuard 1960 FIT Tests 1960 Sigmoidoscopy 1960 Tdap Vaccines 1979 Physical Exam 2000 Pneumococcal Vaccine: 50+ Years (1 of 1 - PCV) 010 Zoster Vaccines (1 of 2) 2010 Creatinine Level (Kidney Function Test) 08/28/2011 1 COLONOSCOPY 09/16/2021 09/16/2011 Colorectal Cancer Screening 09/16/2021 COVID-19 Vaccine ( season) 2024 AAA SCREEN 2025 Influenza Vaccines (#1) 2025 RSV Vaccines (1 - 1-dose 75+ series) 2035 [facility]2025-07-30 16:41:58 Diagnosis Type 2 diabetes mellitus wit h obesity (multi HCC) - Primary Abdominal pain, unspecified abdominal location Gastroesophageal reflux dise ase, unspecified whether esophagitis present [facility]2025-07-30 16:41:58 [facility]
[2025-07-11] MEDS ORDERED: ONDANSETRON 4 MG/2 ML VIAL ONE (06:36)
[2025-07-11] MEDS ORDERED: FAMOTIDINE 20 MG/2 ML VIAL IV ONE (06:37)
[2025-07-11] MEDS ORDERED: NA CHLORIDE 0.9% 1,000 ML ONE (06:37)
[2025-07-11 06:42] LABS: Absolute Lymphocytes (CBC) 1.4 K/uL (0.7-4.9); Hematocrit 52.0 % (39.6-49.0); Hemoglobin 17.6 g/dL (13.6-17.9); MCH 29.5 pg (27.0-35.0); MCHC 33.9 g/dL (32.0-36.0); MCV 86.9 fL (80-100); MPV 7.5 fL (7.6-11.3); Nucleated RBC Absolute Count 0.0 (0-0); Nucleated Red Blood Cells % 0.1 % (0-0); RBC Red Blood Cell Count 5.98 M/uL (4.33-5.43); White Blood Count 18.30 thou/uL (4.3-10.9)
[2025-07-11 07:00] LABS: ALT/SGPT 26 U/L (16-61); Albumin 3.6 g/dL (3.4-5.0); Albumin/Globulin Ratio 1.1 (1.1-1.8); Alkaline Phosphatase 73 U/L (45-117); Anion Gap 10.2 mEq/L (5.0-15.0); BUN Blood Urea Nitrogen 18 mg/dL (7-18); Globulin 3.4 g/dL (2.3-3.5); Glucose Level 233 mg/dL (74-106); Lipase 52 U/L (13-75); Potassium 4.2 mEq/L (3.5-5.1)
[2025-07-11 07:04] LABS: AST/SGOT < 10 U/L (15-37)
--- NOTE | 2025-07-11 07:37 | RAD REPORT ---
EXAMINATION: CT ABDOMEN AND PELVIS WITH CONTRAST CLINICAL INDICATION: Abdominal pain TECHNIQUE: CT abdomen and pelvis was performed, after the administration of 100 cc Isovue-300.. Sagit rosalinda and coronal reconstructions were obtained. One or more of the following dose reduction techniques were used: Automated exposure control, adjustment of the mA and kV according to patient si ze, and iterative reconstruction. Unless otherwise specified, incidental findings do not require dedicated imaging follow-up. [id number]. Oral contrast was not given which limits evaluation of bowel and appendix. COMPARISON: .None FINDINGS: Liver, spleen, pancreas, adrenals and right kidney unremarkable. 2.2 cm left renal cyst. Mild gastric distention. Small umbilical hernia. Spondylosis lumbar spine. Small right inguinal hernia No evidence of diverticulitis. : IMPRESSION: Mild gastric distention
--- NOTE | 2025-07-11 07:51 | EDPHYS ---
Physician Documentation [facility] Name: Marco Antonio Arteaga Sr Age: 65 yrs Sex: Male : 1960 Arrival Date: 07/11/2025 Time: 05:51 Bed 4 Private MD: Andre Guardado ED Physician Damion Kahn HPI: 07/11 06:19 This 65 yrs old Male presents to ER via Unassigned with complaints of Rash, rn Nausea/Vomiting, Abdominal Pain, Possible medication reaction. 06:19 Patient reports has been taking Mounjaro for more than a year, is exhibiting rn nausea/vomiting/abdominal pain. Worse over the last few days. Seen by PCP and had abdominal ultrasound that was normal and symptoms blamed on Mounjaro. Patient states symptoms returned last night and also had a faint rash that is improving on its own.. Historical: - Allergies: 06:32 PENICILLINS; ha1 - PMHx: 06:32 Diabetes mellitus; ha1 - Immunization history:: Adult Immunizations up to date. - Infectious Disease History:: Denies. - Family history:: not pertinent. - Social history:: Smoking status: Patient denies any tobacco usage or history of. - Hospitalizations: : No recent hospitalization is reported. ROS: 06:19 Constitutional: Negative for fever, chills, and weight loss, Cardiovascular: Negative rn for chest pain, palpitations, and edema, Respiratory: Negative for shortness of breath, cough, wheezing, and pleuritic chest pain, Abdomen/GI: Positive for abdominal pain, nausea, vomiting and diarrhea MS/Extremity: Negative for injury and deformity, Skin: Negative for injury, rash, and discoloration, Neuro: Positive for generalized weakness and malaise Exam: 06:19 Constitutional: This is a well developed, well nourished patient who is awake, alert, rn and in no acute distress. ENT: Dry mucous membranes Cardiovascular: Tachycardic, regular Respiratory: No increased work of breathing, no retractions or nasal flaring. Abdomen/GI: Soft, mild mid and epigastric abdominal tenderness. Skin: No cyanosis. Faint rash to anterior abdomen and upper extremities that appears urticarial Vital Signs: 06:00 BP 156 / 86; Pulse 116; Resp 17 S; Temp 97.8; Pulse Ox 100% on R/A; Weight 117.93 kg; ha1 Height 5 ft. 9 in. ; 08:12 BP 116 / 80; Pulse 100; Resp 18; Pulse Ox 98% on R/A; ar8 06:00 Body Mass Index 38.39 (117.93 kg, 175.26 cm) ha1 MDM: 06:00 Medical Screening Exam initiated rn 07:28 Transition of care: Care assumed from Jules Sol MD. ms3 07:42 ED course: Patient care and report received from Dr. Sol at 7 AM. Patient presenting ms3 to the emergency department for abdominal pain, nausea, vomiting, diarrhea. Patient saw his primary care physician where an abdominal ultrasound was performed and found to be negative. Patient was told symptoms possibly secondary to Mounjaro use. Patient with elevated white blood count of 18,000 with mid epigastric pain. Plan for patient is if CT scan is negative we will have patient's stop Mounjaro.. 07:52 Differential diagnosis: Adverse medication reaction versus pancreatitis versus bowel ms3 obstruction. Data reviewed: vital signs, nurses notes, lab test result(s), radiologic studies, and as a result, I will discharge patient. I considered the following discharge prescriptions or medication management in the emergency department Medications were administered in the Emergency Department. See MAR. Counseling: I had a detailed discussion with the patient and/or guardian regarding the historical points, exam findings, and any diagnostic results supporting the discharge/admit diagnosis, lab results, radiology results, the need for outpatient follow up, to return to the emergency department if symptoms worsen or persist or if there are any questions or concerns that arise at home. Response to treatment: the patient's symptoms have markedly improved after treatment, and as a result, I will discharge patient. Special discussion: Based on the patient's Hx, exam, and Dx evaluation, there is no indication for emergent surgery or inpatient Tx. It is understood by the patient/guardian that if the Sx's persist or worsen they need to return immediately for re-evaluation. ED course: Patient given prescription for Reglan as patient has gastric dilatation on CT. Patient's elevated white blood count and mild elevation in bilirubin likely secondary to emesis. On repeat exam abdominal examination is benign, patient is alert and oriented x 4, no apparent distress, nontoxic-appearing, speaking full sentences. Patient denies having fevers, chills, and states this has been ongoing for 3 weeks. Patient states his symptoms did improve after he skipped Mounjaro for 1 week. Discussed discontinuing Mounjaro in consultation with his primary care physician with patient. Patient to follow-up with his primary care physician in 2 to 3 days. Patient understands and agrees with plan. All questions were answered. Return precautions discussed include worsening symptoms, or any other concerns.. 07/11 06:18 Order name: CBC with Diff; Complete Time: 06:48 rn 07/11 06:18 Order name: CMP; Complete Time: 07:41 rn 07/11 06:18 Order name: Lipase; Complete Time: 07:41 rn 07/11 06:18 Order name: CT Abd/Pelvis - IV Contrast Only; Complete Time: 07:41 rn 07/11 06:18 Order name: IV Saline Lock; Complete Time: 06:35 rn 07/11 06:18 Order name: Labs collected and sent; Complete Time: 06:35 rn Administered Medications: 06:41 Drug: Famotidine IVP 20 mg IVP once; dilute with 10 mL 0.9% NaCl; give over 2 minutes jj7 Route: IVP; Site: right antecubital; 08:10 Follow up: Response: No adverse reaction; Nausea is decreased ar8 06:41 Drug: NS 0.9% IV 1000 ml IV at 1 bolus Per protocol; to be given as a bolus over 60 jj7 minutes Route: IV; Rate: 1 bolus; Site: right antecubital; 08:10 Follow up: Response: No adverse reaction; Nausea is decreased; IV Status: Completed ar8 infusion; IV Intake: 1000ml 06:42 Drug: Ondansetron IVP 4 mg IVP once; over 2 minutes Route: IVP; Site: right antecubital;jj7 08:10 Follow up: Response: No adverse reaction; Nausea is decreased ar8 Disposition Summary: 07/11/25 07:50 Discharge Ordered Notes: Location: Home ms3 Condition: Stable ms3 Diagnosis - Upper abdominal pain, unspecified ms3 - Leukocytosis ms3 - Dehydration ms3 Followup: ms3 - With: Andre Guardado DO - When: 2 - 3 days - Reason: Recheck today's complaints Discharge Instructions: - Discharge Summary Sheet ms3 - Abdominal Pain, Adult ms3 Forms: - Medication Reconciliation Form ms3 - Antibiotic Education ms3 - Prescription Opioid Use ms3 - Patient Portal Instructions ms3 - Leadership Thank You Letter ms3 Prescriptions: - Reglan 10 mg Oral Tablet - take 1 tablet ORAL route every 6 hours take 30 minutes before meals and at ms3 bedtime; 20 tablet; Refills: 0, Product Selection Permitted Signatures: Dispatcher [employer] EDMS Jules Sol MD MD rn Sims, Marcus, DO DO ms3 Kimberly Rankin RN RN ha1 Steven Shah RN RN jj7 Rodriguez, Andrea RN ar8 Corrections: (The following items were deleted from the chart) 06:19 06:19 CBC+H.LAB.BRZ ordered. EDMS EDMS 06:19 06:19 COMPREHENSIVE METABOLIC PANEL+C.LAB.BRZ ordered. EDMS EDMS 06:19 06:19 LIPASE+C.LAB.BRZ ordered. EDMS EDMS 06:19 06:19 Abdomen Pelvis W Con+CT.RAD.BRZ ordered. EDMS EDMS 06:33 06:32 Allergies: No Known Allergies; ha1 ha1
--- NOTE | 2025-07-11 07:51 | ER ---
Nurse's Notes [facility] Name: Marco Antonio Arteaga Sr Age: 65 yrs Sex: Male : 1960 Arrival Date: 07/11/2025 Time: 05:51 Bed 4 Private MD: Andre Guardado Diagnosis: Upper abdominal pain, unspecified;Leukocytosis;Dehydration Presentation: 07/11 06:00 Chief complaint: Patient states: NAUSEA, VOMITING, DIARRHEA, AND RASH AFTER TAKING AN ha1 ANTIDIARRHEAL MEDICATION. 06:00 Coronavirus screen: Client denies travel out of the [place] in the last 14 days. Ebola ha1 Screen: No symptoms or risks identified at this time. Initial Sepsis Screen: Does the patient meet any 2 criteria? No. Patient's initial sepsis screen is negative. Does the patient have a suspected source of infection? No. Patient's initial sepsis screen is negative. Risk Assessment: Do you want to hurt yourself or someone else? Patient reports no desire to harm self or others. Onset of symptoms was July 11, 2025. 06:00 Method Of Arrival: Ambulatory ha1 06:00 Acuity: ESTHELA 3 ha1 Triage Assessment: 06:32 General: Appears uncomfortable, Behavior is calm, cooperative. Pain: Complains of pain ha1 in abdomen Pain currently is 7 out of 10 on a pain scale. Quality of pain is described as crampy. Neuro: Level of Consciousness is awake, alert, obeys commands, Oriented to person, place, time, situation. Respiratory: Airway is patent Respiratory effort is even, unlabored, Respiratory pattern is regular, symmetrical. GI: Abdomen is round non-distended, obese, Reports lower abdominal pain, upper abdominal pain, diarrhea. Derm: Skin is Rash noted that is red. Historical: - Allergies: 06:32 PENICILLINS; ha1 - PMHx: 06:32 Diabetes mellitus; ha1 - Immunization history:: Adult Immunizations up to date. - Infectious Disease History:: Denies. - Family history:: not pertinent. - Social history:: Smoking status: Patient denies any tobacco usage or history of. - Hospitalizations: : No recent hospitalization is reported. Screenin:42 [facility] ED Fall Risk Assessment (Adult) History of falling in the last 3 months, jj7 including since admission No falls in past 3 months (0 pts) Confusion or Disorientation No (0 pts) Intoxicated or Sedated No (0 pts) Impaired Gait No (0 pts) Mobility Assist Device Used No (0 pt) Altered Elimination No (0 pt) Score/Fall Risk Level 0 - 2 = Low Risk Oriented to surroundings, Maintained a safe environment, Educated pt \T\ family on fall prevention, incl call for assistance when getting out of bed, Assessed \T\ reinforced patient's understanding of fall precautions. Abuse screen: Denies threats or abuse. Nutritional screening: No deficits noted. Tuberculosis screening: No symptoms or risk factors identified. Assessment: 06:42 General: Appears in no apparent distress. comfortable, Behavior is calm, cooperative, jj7 appropriate for age. GI: Abd is soft X 4 quads Abdomen is tender to palpation in epigastric area Reports epigastric pain. Vital Signs: 06:00 BP 156 / 86; Pulse 116; Resp 17 S; Temp 97.8; Pulse Ox 100% on R/A; Weight 117.93 kg; ha1 Height 5 ft. 9 in. ; 08:12 BP 116 / 80; Pulse 100; Resp 18; Pulse Ox 98% on R/A; ar8 06:00 Body Mass Index 38.39 (117.93 kg, 175.26 cm) ha1 ED Course: 05:53 Patient arrived in ED. jj6 05:54 Andre Guardado DO is Private Physician. jj6 06:00 Jules Sol MD is Attending Physician. rn 06:32 Triage completed. ha1 06:35 CBC with Diff Sent. jj7 06:35 CMP Sent. jj7 06:35 Lipase Sent. jj7 06:38 Inserted saline lock: 20 gauge in right antecubital area, using aseptic technique. jj7 Blood collected. Flushed with 10 mL NS. 06:42 Patient has correct armband on for positive identification. Bed in low position. Call jj7 light in reach. Side rails up X2. Provided Education on: USE OF CALL ALVARADO. Door closed. Lights dimmed. 07:02 Report given to REPORT GIVEN TO CATALINA AND ANAND SY. jj7 07:16 CT Abd/Pelvis - IV Contrast Only In Process Unspecified. EDMS 07:27 Attending Physician role handed off by Jules Sol MD ms3 07:27 Damion Kahn DO is Attending Physician. ms3 07:50 Andre Guardado DO is Referral Physician. ms3 08:12 IV discontinued, intact, bleeding controlled, No redness/swelling at site. Pressure ar8 dressing applied. 08:12 No provider procedures requiring assistance completed. ar8 Administered Medications: 06:41 Drug: Famotidine IVP 20 mg IVP once; dilute with 10 mL 0.9% NaCl; give over 2 minutes jj7 Route: IVP; Site: right antecubital; 08:10 Follow up: Response: No adverse reaction; Nausea is decreased ar8 06:41 Drug: NS 0.9% IV 1000 ml IV at 1 bolus Per protocol; to be given as a bolus over 60 jj7 minutes Route: IV; Rate: 1 bolus; Site: right antecubital; 08:10 Follow up: Response: No adverse reaction; Nausea is decreased; IV Status: Completed ar8 infusion; IV Intake: 1000ml 06:42 Drug: Ondansetron IVP 4 mg IVP once; over 2 minutes Route: IVP; Site: right antecubital;jj7 08:10 Follow up: Response: No adverse reaction; Nausea is decreased ar8 Medication: 06:42 VIS not applicable for this client. jj7 Intake: 08:10 IV: 1000ml; Total: 1000ml. ar8 Outcome: 07:50 Discharge ordered by . ms3 08:12 Discharged to home ambulatory, ar8 08:12 Condition: stable 08:12 Discharge instructions given to patient, Instructed on discharge instructions, follow up and referral plans. medication usage, Demonstrated understanding of instructions, follow-up care, medications, Prescriptions given X 1, 08:14 Patient left the ED. ar8 Signatures: Dispatcher [employer] EDMS Jules Sol MD MD rn Sims, Marcus, DO DO ms3 Анна Pinedo jj6 Kimberly Rankin RN RN ha1 Steven Shah RN RN jj7 Silvino Myers RN RN ar8 Corrections: (The following items were deleted from the chart) 06:33 06:32 Allergies: No Known Allergies; ha1 ha1
[2025-07-11 09:04] VITALS: TEMP 97.8
[2025-07-11 09:05] VITALS: BP 116/80; O2SAT 98
== END 2025-07-11 08:14 | disposition home or self-care (01) ==
LOC: ER 05:51
DX: R10.13 Epigastric pain (principal); E86.0 Dehydration; D72.829 Elevated white blood cell count, unspecified; R11.0 Nausea; E11.9 Type 2 diabetes mellitus without complications
CPT/HCPCS: 96361; 85025; 36415; 83690; 80053; 74177; 96375; 96374; 99284; Q9967; J2405; J7030